=== PATIENT | female | born 1975 | race Caucasian/White ===

== ENCOUNTER 2017-07-18 23:04 | Emergency (ER) | payer OTHER ==
[~2017-07-18] VITALS: Ht 165.1 cm; Wt 108.0 kg
[2017-07-18 23:14] VITALS: Ht 165.1 cm; Wt 108.0 kg
[2017-07-19 00:45] VITALS: BP 108/74
== END 2017-07-19 00:55 | disposition home or self-care (01) ==
LOC: ED 23:04
DX: M54.5 Low back pain (principal)

== ENCOUNTER 2017-10-26 12:33 | Emergency (ER) | payer OTHER ==
[~2017-10-26] VITALS: Ht 165.1 cm; Wt 112.9 kg
[2017-10-26 12:39] VITALS: Ht 165.1 cm; Wt 112.9 kg
[2017-10-26 13:24] LABS: BASOPHIL % 0.4 % (0-2); PLATELET COUNT 341 x10^3mcL (130-400); RED CELL DISTRIBUTION WIDTH 13.6 % (11.5-14.5)
[2017-10-26 13:44] LABS: CALCIUM 8.7 mg/dL (8.5-10.1); CARBON DIOXIDE 27.9 mmol/L (21-32); CHLORIDE SERUM 104 mmol/L (98-107); CREATININE SERUM 0.7 mg/dL (0.6-1.0); GFR1 > 60 mL/min; GLUCOSE SERUM 153 mg/dL (74-106); POTASSIUM SERUM 3.7 mmol/L (3.5-5.1); SODIUM SERUM 138 mmol/L (136-145)
[2017-10-26 13:49] LABS: ALKALINE PHOSPHATASE 116 U/L (46-116); ALT/SGPT 61 U/L (14-59); AST/SGOT 47 U/L (15-37); BILIRUBIN TOTAL 0.3 mg/dL (0.20-1.00); CHOLESTEROL 187 mg/dL (<200); CHOLESTEROL/HDL RATIO 4.9; HDL CHOLESTEROL 38 mg/dL (40-60); LIPASE 93 IU/L (73-393); TOTAL PROTEIN, SERUM 7.2 g/dL (6.4-8.2)
[2017-10-26 13:50] LABS: ALBUMIN 3.3 g/dL (3.4-5.0); TRIGLYCERIDES 322 mg/dL (<150)
[2017-10-26 13:53] LABS: T3 TOTAL 1.3 ng/mL
[2017-10-26 13:58] LABS: microscopic required? YES; urine erythrocyte NEGATIVE (NEGATIVE)
[2017-10-26 13:59] LABS: FREE T4 0.9 ng/dL (0.76-1.46); FREE THYROXINE INDEX 2.2 ug/dL (1.4-4.5); T4(THYROXINE) 7.2 ug/dL (4.7-13.3)
[2017-10-26 15:04] VITALS: BP 118/46
== END 2017-10-26 15:04 | disposition home or self-care (01) ==
LOC: ED 12:33
PROVIDERS: Specialist
DX: R60.0 Localized edema (principal); Z88.5 Allergy status to narcotic agent; Z90.49 Acquired absence of other specified parts of digestive tract; Z90.89 Acquired absence of other organs
CPT/HCPCS: 36415; 83880; 84439; Q0092

== ENCOUNTER 2018-02-03 20:21 | Emergency (ER) | payer OTHER ==
[~2018-02-03] VITALS: Ht 167.6 cm; Wt 112.0 kg
[2018-02-03 20:59] VITALS: BP 138/88; Ht 167.6 cm; Wt 112.0 kg
== END 2018-02-03 22:38 | disposition home or self-care (01) ==
LOC: ED 20:21
DX: M54.16 Radiculopathy, lumbar region (principal); Z90.49 Acquired absence of other specified parts of digestive tract; Z88.5 Allergy status to narcotic agent
CPT/HCPCS: J1885